=== PATIENT | female | born 1980 | race Caucasian/White ===

== ENCOUNTER 2017-12-23 09:06 | Emergency (ER) | payer OTHER ==
[2017-12-23 09:18] VITALS: BP 115/92
--- NOTE | 2017-12-23 09:52 | ED Physician Documentation ---
PD HPI SKIN - Stated complaint Stated Complaint: BILAT LEG RASH - Chief complaint Chief Complaint: Ext Problem - History obtained from History obtained from: Patient - History of Present Illness Timing - onset: How many weeks ago (1) Timing - duration: Weeks (1) Timing - details: Gradual onset (initially a few itchy spots on lower legs, but has progressed to whole of lower legs, some left tigh, and now also some itchy spot left arm. No general hives/itch. Was in [place] at the onset. Here now in [facility] for the week.) Quality / character: Itchy, Discolored. No: Vesicular, Draining Improved by: No: Benadryl, Steroid cream Associated symptoms: No: Fever, Myalgias, N/V/D Contributing factors: No: Exposed to Poison amita/oak, Insect bite /sting (not aware of tick bite nor leech (onset soon after swimming in a pretty there).), Recent illness Similar symptoms before: Has not had sx before Review of Systems Constitutional: denies: Fever, Chills, Myalgias Nose: denies: Rhinorrhea / runny nose, Congestion Throat: denies: Sore throat Respiratory: denies: Cough GI: denies: Nausea, Vomiting, Diarrhea Skin: reports: Rash, Lesions. denies: Abrasion (s), Laceration (s), Bite / sting Musculoskeletal: denies: Neck pain, Back pain Neurologic: denies: Generalized weakness, Focal weakness, Numbness PD PAST MEDICAL HISTORY - Past Medical History Past Medical History: Yes Cardiovascular: None Respiratory: None Neuro: None Endocrine/Autoimmune: HyPOthyroidism GI: None BOAT TESTER: None : None HEENT: None Psych: None Musculoskeletal: None Derm: None - Past Surgical History Past Surgical History: No - Present Medications Home Medications: Ambulatory Orders Medication Instructions Recorded Confirmed Dexamethasone [Decadron] 4 mg PO DAILY #5 tablet 12/23/17 Doxycycline Monohydrate 100 mg PO BID #14 tablet 12/23/17 Levothyroxine [Synthroid] 1 tab PO DAILY 12/23/17 12/23/17 Permethrin 5% Cream 60 applic TOP ONCE #1 tube 12/23/17 - Allergies Allergies/Adverse Reactions: Allergies Allergy/AdvReac Type Severity Reaction Status Date / Time cephalexin [From Keflex] AdvReac Emesis Verified 06/28/18 09:18 - Social History Does the pt smoke?: No Smoking Status: Never smoker Does the pt have substance abuse?: No - Immunizations Immunizations are current?: Yes - POLST Patient has POLST: No PD ED PE NORMAL - Vitals Vital signs reviewed: Yes - General General: Alert and oriented X 3, No acute distress, Well developed/nourished - HEENT HEENT: Pharynx benign - Neck Neck: Supple, no meningeal sign, No adenopathy - Cardiac Cardiac: RRR, No murmur - Respiratory Respiratory: Clear bilaterally - Derm Derm: Normal color, Warm and dry - Extremities Extremities: Other (lower legs with spots of itchy rash, some in lines, without roundness nor general induration. There are a few deeper red areas with induration on anterior left leg that could be c/w infection. Small itchy spot on left arm, otherwise no general rash. ) - Neuro Neuro: Alert and oriented X 3, No motor deficit, Normal speech Results - Vitals Vitals: Oxygen O2 Source Room air PD MEDICAL DECISION MAKING - ED course Complexity details: considered differential (very itchy and some linearity in places suggesting parasite such as scabies. There are areas of induration without drainage but look like focal areas of infection too. Origin of the rash was while in outdoors in [place]. The lesions do not look like Lyme though. ), d/w patient - Sepsis Event Vital Signs: Oxygen O2 Source Room air Departure - Departure Disposition: 01 Home, Self Care Clinical Impression: Skin rash Condition: Stable Record reviewed to determine appropriate education?: Yes Instructions: ED Staph Infec Abx Tx Only, ED Scabies Prescriptions: Dexamethasone [Decadron] 4 mg PO DAILY #5 tablet Doxycycline Monohydrate 100 mg PO BID #14 tablet Permethrin 5% Cream 60 applic TOP ONCE #1 tube Comments: Some of the appearance and character of it are suggestive of a parasite such as scabies. For that I would have you use the permethrin neck to feet according to the package instructions. Also add Decadron steroid daily for 5 more days to reduce the inflammation associated with it. You can continue Benadryl and add long-acting antihistamine such as Claritin or Zyrtec. Some parts of the rash look like bacterial infection as well and so take doxycycline twice daily for a week. This should dissipate the rash over the next few days. Recheck if it is not improved over the next several days. Discharge Date/Time: 12/23/17 11:33
[2017-12-23] MEDS ORDERED: DEXAMETHASONE 10 MG/ML VIAL PO STA (11:24)
[2017-12-23] MEDS ORDERED: DOXYCYCLINE 100 MG TABLET PO STA (11:24)
== END 2017-12-23 11:33 | disposition home or self-care (01) ==
LOC: ED 09:06
DX: R21 Rash and other nonspecific skin eruption (principal); E03.9 Hypothyroidism, unspecified
CPT/HCPCS: 99283; A9270